=== PATIENT | male | born 1985 | race Caucasian/White ===

== ENCOUNTER 2016-12-13 20:34 | Emergency (ER) | payer MEDICARE | END 2016-12-13 21:35 | disposition home or self-care (01) | LOC: ER 20:34 | DX: J02.9 Acute pharyngitis, unspecified (principal); R05 Cough; F32.9 Major depressive disorder, single episode, unspecified; F11.20 Opioid dependence, uncomplicated; F17.210 Nicotine dependence, cigarettes, uncomplicated; Z79.899 Other long term (current) drug therapy | CPT/HCPCS: 87070; 87400; 87880; 99283 ==